=== PATIENT | male | born 1970 | race Caucasian/White ===

== ENCOUNTER 2018-04-22 14:08 | Emergency (ER) | payer MEDICAID ==
--- NOTE | 2018-04-22 14:20 | EDPHY ---
H & P Source: Police, RN/MD Exam Limitations: Intoxication Time Seen by Provider: 04/22/18 14:17 HPI/ROS: HPI: This is a 47-year-old male who presents with Chief Complaint: [facility], alcohol intoxication Location: psych Quality: Alcohol intoxication Duration: Today Signs and Symptoms: no fever, no nausea, no vomiting, no hematemesis, no blood in stool, no abdominal bloating, no diarrhea, no back pain, no urinary symptoms , no testicular/groin pain, no indigestion, no chest pain, no shortness of breath Timing: Acute on chronic Severity: Moderate Context: Please were called to the local [facility] for patient being passed out secondary to alcohol intoxication. Patient reports that he falls down a lot and sustained a left knee abrasion. He reports that he"drink a lot." He denies any chest pain, shortness of breath, abdominal pain, seizure activity. On route in the ambulance patient urinated on his clothing. Patient reports [facility] given amox[facility] and another medication for his abrasions. Modifying Factors: None Comment: ROS: see HPI Constitutional: No fever, no chills, no weight loss Eyes: No blurred vision Respiratory: No shortness of breath, no cough Cardiovascular: No chest pain, no palpitations Gastrointestinal: No nausea, no vomiting, no diarrhea, no hematemesis, no blood in stool Genitourinary: No dysuria, no blood in urine Extremities: No myalgias, no edema Neurologic: No weakness, no numbness Skin: No rashes, no petechiae Hematologic: No bruising, no bleeding MEDICAL/SURGICAL/SOCIAL HISTORY: Medical history: Alcoholism Surgical history: Denies Social history: Unemployed Family history noncontributory. CONSTITUTIONAL: Intoxicated middle-aged white male, smells heavily of alcohol, awake and alert, no obvious distress HEENT: Atraumatic and normocephalic, PERRL, EOMI. Nares patent; no rhinorrhea; no nasal mucosal edema. Tympanic membranes clear. Oropharynx clear, no exudate and moist pink mucosa. Airway patent. No lymphadenopathy. No meningismus. Cardiovascular: Normal S1/S2, mild tachycardia, regular rhythm, without murmur rub or gallop. PULMONARY/CHEST: Symmetrical and nontender. Clear to auscultation bilaterally. Good air movement. No accessory muscle usage. ABDOMEN: Soft, nondistended, nontender, no rebound, no guarding, no peritoneal signs, no masses or organomegaly. No CVAT. EXTREMITIES: 2/2 pulses, strength 5/5, left KNEE: Superficial abrasion noted to the anterior knee no active bleeding no effusion, no medial and lateral joint line tenderness, full extension to 180, flexion to 120. No pain with varus and valgus exam. No pain with anterior drawer or posterior drawer test. no deformities, no clubbing, no cyanosis or edema. NEUROLOGICAL: no focal neuro deficits. Alert to self only. Follows simple commands. Speech is slurred. SKIN: Warm and dry, no erythema. no rash. Good capillary refill. (Emperatriz Vuong) Constitutional: Initial Vital Signs Temperature (C) 37 C 04/22/18 14:18 Heart Rate 107 H 04/22/18 14:18 Respiratory Rate 16 04/22/18 14:18 Blood Pressure 126/81 H 04/22/18 14:18 O2 Sat (%) 92 04/22/18 14:18 O2 Delivery Mode Room Air Medical Decision Making ED Course/Re-evaluation: 1410: Agree with [facility]. Patient is maintaining his airway and vital signs stable. Will monitor until more sober. Patient does not meet M1 hold criteria. 1548: Reassessed patient who is sleeping soundly in the hallway. 1600: Patient ambulatory to the restroom without any deficits or ataxia. Patient will be [facility] to the [facility] with Librium prepack. No signs of alcohol withdrawal seizures, delirium. This patient was seen under the supervision of my secondary supervising physician. I evaluated care for this patient independently. Discussed this patient with Dr. Huffman. (Emperatriz Vuong) Differential Diagnosis: Altered mental status including but not limited to hypoglycemia, infectious process, electrolyte abnormality, head injury and intoxicants. (Emperatriz Vuong) Other Provider: The patient was evaluated and managed by the Physician Building Stone[employer]ter. I discussed the patient's presentation and course with the midlevel provider with them and agree with the evaluation. My co-signature indicates that I have reviewed this chart and I agree with the findings and plan of care as documented. I am the secondary supervising physician. (Fatou Huffman) - Data Points Medications Given: Discontinued Medications Chlordiazepoxide (Librium 25 Mg Prepack#6) 1 btl TAKEYE[facility]I EDNOW ONE Stop: 04/22/18 15:49 Last Admin: 04/22/18 16:18 Dose: 1 btl Departure - Departure Disposition: Home, Routine, Self-Care Clinical Impression: Alcohol intoxication Condition: Good Instructions: Alcohol Intoxication (ED), Abuse of Alcohol (ED) Additional Instructions: Please refrain from drinking alcohol excessively. You are medically clear to be discharged to the [facility]. Use Librium as needed to control alcohol withdrawal symptoms. Referrals: [facility] [Outside] - As per Instructions
[2018-04-22] MEDS ORDERED: CHLORDIAZEPOXIDE 25MG PREPK#6 BTL TAKEHOME ONE (15:48)
[2018-04-22 16:26] VITALS: BP 137/87
== END 2018-04-22 16:26 | disposition home or self-care (01) ==
DX: F10.129 Alcohol abuse with intoxication, unspecified (principal)

== ENCOUNTER 2018-11-08 16:48 | Emergency (ER) | payer MEDICAID ==
--- NOTE | 2018-11-08 17:28 | EDPHY ---
HPI/HX/ROS/PE/MDM Narrative: CHIEF COMPLAINT: Head injury HPI: The patient is a 48 y/o male arriving with his girlfriend for evaluation of a head injury secondary to a fall this afternoon. He does not remember the event, but does admit to drinking alcohol today. His girlfriend says he fell at the bus stop and struck his forehead on the ground. He currently denies any complaints including headache, neck pain, vision issues, weakness or numbness on one side of his body, or other trauma. He denies anticoagulant use. Patient arrives on an [facility] hold by police. REVIEW OF SYSTEMS: Aside from elements discussed in the HPI, a comprehensive 10-point review of systems was reviewed and is negative. PMH: Alcohol abuse SOCIAL HISTORY: Alcoholism. Girlfriend at bedside. Transient. PHYSICAL EXAM: General:Patient is alert but quite intoxicated, in no acute distress. Smells of alcohol. Head: 0.5cm laceration left forehead. ENT:Eyes are normal to inspection. ENT inspection normal. Neck: Normal inspection. Full range of motion. Respiratory:No respiratory distress. Breath sounds normal bilaterally. Cardiovascular: Regular rate and rhythm. Strong peripheral pulses. Normal cap refill. Abdomen:The abdomen is nontender to palpation. There are no peritoneal signs. Back: Normal to inspection. No tenderness to palpation. Skin: Normal color. No rash. Warm and dry. Extremities: Normal appearance. Full range of motion. Neuro: Normal motor function. Normal sensory function. ED Course: This is a 48 y/o male with a history of alcohol abuse who presents with a 0.5cm laceration to his left forehead secondary to a fall this afternoon. He does not remember the event and admits to alcohol use. He is currently asymptomatic. Plan for head CT, breathalyzer, and wound care. 1730: Breathalyzer: 306. Head CT negative per Dr. Rodriguez. Procedure: Laceration repair. Verbal consent was obtained from the patient. The 0.5cm linear laceration on the left forehead was anesthetized using topical anesthesia. The wound was cleaned with standard ED protocol. There were no deep structures involved.] [No tendon injury was identified. The wound was repaired with Dermabond. The wound repair was simple. The procedure was performed by myself, Dr. Moon. Patient will be discharged to the [facility] in stable condition. Standard laceration care and follow up instructions provided. Return precautions discussed. He is comfortable with this plan. - Data Points Imaging Results: Imaging Impressions Head CT 11/08/18 17:28 Impression: There is no acute intracranial abnormality identified on this unenhanced CT evaluation. If there is further clinical concern regarding the patient's symptoms, MR imaging is suggested, if not otherwise contraindicated. Findings were discussed with Ambrocio Moon MD at 17:54, on 11/08/2018. Imaging: Discussed imaging studies w/ consulting networking engineer Radiologist General Time Seen by Provider: 11/08/18 17:19 Initial Vital Signs: Initial Vital Signs Temperature (C) 36.6 C 11/08/18 16:53 Heart Rate 106 H 11/08/18 16:53 Respiratory Rate 18 11/08/18 16:53 Blood Pressure 144/85 H 11/08/18 16:53 O2 Sat (%) 96 11/08/18 16:53 O2 Delivery Mode Room Air Allergies/Adverse Reactions: No Known Allergies Allergy (Unverified 11/08/18 16:55) Home Medications: Medication Instructions Recorded NK [No Known Home Meds] 11/08/18 Departure - Departure Disposition: Home, Routine, Self-Care Clinical Impression: Alcoholic intoxication, Fall, Forehead laceration Condition: Good Instructions: Chlordiazepoxide/Clidinium (By mouth), Laceration (ED), Alcohol Intoxication (ED) Additional Instructions: 1. Keep wound clean and dry. Do not apply Neosporin or other topical agents to glue. Do not rub off glue, it will slowly dissolve over the next week. 2. Reduce alcohol use. 3. Follow up with your primary care provider next week. 4. Return to the ED for any worsening of condition. Referrals: [facility] [Outside] - As per Instructions [facility] [Outside] - As per Instructions Report Scribed for: Ambrocio Moon Report Scribed by: Savanna Simpson Date of Report: 11/08/18 Time of Report: 17:30 Physician Review and Approval Statement: Portions of this note were transcribed by an ED scribe. I personally performed the history, physical exam, and medical decision making; and confirm the accuracy of the information in the transcribed note.
[2018-11-08] MEDS ORDERED: SKIN ADHESIVE (DERMABOND) 1 EACH TP ONE (18:52)
[2018-11-08 20:21] VITALS: BP 166/113
[2018-11-08] MEDS ORDERED: CHLORDIAZEPOXIDE 25MG PREPK#6 BTL TAKEHOME ONE ×2 (20:24→20:27)
== END 2018-11-08 21:00 | disposition home or self-care (01) ==
LOC: EDUNIT#
PROC: 0HQ1XZZ Repair Face Skin, External Approach (ICD-10-PCS; principal; 2018-11-08)
DX: S01.81XA Laceration without foreign body of other part of head, initial encounter (principal); F10.129 Alcohol abuse with intoxication, unspecified; W01.198A Fall on same level from slipping, tripping and stumbling with subsequent striking against other object, initial encounter; Y92.811 Bus as the place of occurrence of the external cause